=== PATIENT | male | born 1940 | race Caucasian/White ===

== ENCOUNTER → 2019-03-20 14:36 | Day surgery (SDC) | payer MEDICARE ==
--- NOTE | 2019-03-13 16:40 | HP ---
CC: Dr. Terry Callejas * PREOPERATIVE HISTORY AND PHYSICAL: DATE OF ADMISSION/SURGERY: 03/20/19 This patient is scheduled for same-day surgery admission by Dr. Salazar on . DATE OF PREOPERATIVE HISTORY AND PHYSICAL EXAMINATION: 03/13/19. ATTENDING SURGEON: Dr. Raphael Salazar * (dictated by Aliyah Cabrera NP). CHIEF COMPLAINT: Right groin hernia. HISTORY OF PRESENT ILLNESS: The patient is a 78-year-old male recently evaluated by Dr. Salazar with a 1-month history of right groin pain. He noted that in November of 2018 he developed a cough and the cough led to straining and discomfort of the right groin. The patient underwent ultrasound, which was consistent with a fat- containing hernia. Dr. Salazar examined the patient and noted a right inguinal bulge that is nontender. Dr. Salazar reviewed the findings with the patient and given the fact that the patient underwent prostatectomy in the past, Dr. Salazar recommended open right inguinal hernia repair with mesh as a same-day surgery procedure with intravenous sedation and local anesthetic. Dr. Salazar described the rationale for the surgery, the nature of the surgery, the relevant risks and benefits and today, I reviewed the expected postoperative care and recovery. The patient has had a chance to ask questions and stated that he understands the information and is satisfied with the answers given to his questions. He will sign surgical consent on the day of surgery. PAST MEDICAL HISTORY: Prostate cancer. PAST SURGICAL HISTORY: Prostatectomy in 1999 and appendectomy in 1972. MEDICATIONS: Ibuprofen [id number] as needed. ALLERGIES: No known drug allergies. FAMILY HISTORY: No known anesthesia complications, bleeding tendencies, or clotting disorders. SOCIAL HISTORY: He is ; his girlfriend accompanied him to the visit today. He is a nonsmoker and drinks on average 7 alcoholic beverages per week. He remains active with gardening. REVIEW OF SYSTEMS: Constitutional: No fevers, chills, excessive fatigue, or weight loss. General: No previous anesthesia complications. No bleeding tendencies or blood transfusions. No history of deep vein thrombosis or pulmonary embolism. Endocrine: No diabetes or thyroid disease. EENMT: No significant visual difficulties. No problems with hearing. No sore throat or sinus drainage. Respiratory: No dyspnea on exertion. No chronic cough. Cardiovascular: No anginal chest pain or palpitations. Gastrointestinal: No nausea, vomiting, diarrhea, GI bleeding, constipation, or change in bowel habits. Genitourinary: No dysuria. Musculoskeletal: Normal strength and tone. Integumentary: No chronic rashes or skin changes. Neurologic: No headache, blurred vision, or areas of focal weakness or numbness. Psychiatric: No anxiety, depression, or insomnia. PHYSICAL EXAMINATION GENERAL SURVEY: The patient is a 78-year-old male, well developed, well nourished, in no acute distress. VITAL SIGNS: Height 69 inches, weight 155 pounds, body mass index 22.9. Blood pressure 118/66, pulse 78 and regular, respiratory rate 12, temperature 97.8 tympanic. HEENT: Benign. NECK: Supple. No cervical lymphadenopathy. LUNGS: Breath sounds bilaterally clear and equal. HEART: Regular rate and rhythm. No murmurs or rubs appreciated. ABDOMEN: Active bowel sounds. Soft, nondistended, nontender throughout. Inguinal exam done by Dr. Salazar. Right inguinal bulge that is nontender. No overlying skin changes. No evidence of a left inguinal hernia. BACK: No CVA tenderness. GENITALIA: Exam deferred. RECTAL: Exam deferred. EXTREMITIES: Warm without edema or skin ulceration. NEUROLOGIC: Alert and oriented x3. Steady gait. PSYCHIATRIC: Cooperative and calm. SKIN: Warm, dry, intact. IMPRESSION: Symptomatic right inguinal hernia. PLAN: Same-day surgery admission to Dr. Salazar's service on 03/20/19 for open right inguinal hernia repair with mesh. ROSALIO CABRERA, SHAHID [id number]/[facility] #: [id number] YOLA
[~2019-03-20 14:36] MED LIST: Buffered Lidocaine 1% SYRIN* 1 ML/SYRINGE INTRADERM ONE; Bupivacaine 0.5% W/EPI SDV* 10 ML VIAL INJ ONE; Dexamethasone TAB* 4 MG ONE; Dexamethasone TAB* 4 MG PO ONE; Famotidine IV* 10 MG/ML 2 ML (20 mg) IV SLOW PU ONE; Famotidine IV* 10 MG/ML 2 ML (20 mg) ONE; KETAMINE HCL* 50 MG/ML 10 ML VIAL ONE; Ketorolac INJ* 30 MG/ML 1 ML VIAL ONE; Lactated Ringers 1000 ML Bag* 1,000 ML IV SCH; Lidocaine 1% INJ* 10 MG/ML 30 ML SDV ONE; Lidocaine 2% PF * 5 ML VIAL ONE; Midazolam* 1 MG/ML 5 ML VIAL (5 MG) ONE; Ondansetron ODT TAB* 4 MG ONE; Ondansetron TAB* 4 MG PO ONE; Propofol* 500 MG/50 ML BTL ONE; ceFAZolin 2 GM PREMIX in ORs 2 GM/50 ML BAG ONE; fentaNYL* 50 MCG/ML 2 ML VIAL (100 MCG VIAL) ONE
[2019-03-20] MEDS: Buffered Lidocaine 1% SYRIN* 1 ML/SYRINGE INTRADERM ONE ×2 (15:07→15:08)
--- NOTE | 2019-03-20 18:57 | BRIEFOPN ---
Brief Operative/Procedure Note - Operation Details Pre-Op Diagnosis: Right Inguinal Hernia Post-Op Diagnosis: same, indirect Procedures: open repair Right inguinial hernia w/ mesh (Progrip) Surgeon(s)/Proceduralists: Martin. Assist: VIKKI Kennedy; XENIA Delcid Anesthesia: local MAC Estimated Blood Loss: < 20 ml Findings: as above Specimen(s)/Culture(s) Description: hernia sac Complications: none
[2019-03-20 19:59] VITALS: BP 145/71
--- NOTE | 2019-03-22 02:23 | OP ---
CC: Primary Care Doctor; [facility] * DATE OF OPERATION: 03/20/19 - [facility] DATE OF : 40 SURGEON: Raphael Salazar MD LOAN DOCUMENTATION SPECIALIST: VIKKI Hennessy ANESTHESIOLOGIST: Dr. Portillo ANESTHESIA: Local MAC anesthesia. PRE-OP DIAGNOSIS: Right inguinal hernia. POST-OP DIAGNOSIS: Right inguinal hernia. OPERATIVE PROCEDURE: Open right inguinal hernia repair with mesh. ESTIMATED BLOOD LOSS: Minimal. FLUIDS: No crystalloid fluid given. SPECIMEN: Hernia sac. COMPLICATIONS: None. DESCRIPTION OF PROCEDURE: The patient was identified in the preoperative area. He was taken to the operating room and placed on the operating table in the supine position. Preoperative antibiotics were given. Sequential devices were placed on bilateral lower extremities. Gentle sedation was given. The patient' s right groin was clipped off hair and prepped and draped in standard surgical fashion and a time- out was performed. After injection of lidocaine, an inguinal incision was made, this was deepened down through Sherie and Camper's fascia down to the external oblique aponeurosis which was cleared off. We then incised this along the direction of the fibers and made flaps both cephalad and caudad, then the spermatic cord structures were isolated around a Cathryn drain. Review of the structures revealed a large indirect hernia. This was isolated from the spermatic structures. We did enter this and so a sliding omental flat that was adhered to the wall of the sac which was lysed away and dropped back into the abdomen. The hernia sac was then ligated with 2-0 Vicryl suture and dropped back into the abdomen through the internal ring which was cleared off. Next, a ProGrip um rn mesh was then utilized, it was placed in appropriate position, suturing at pubic tubercle and also in the shelving edge of the inguinal ligament. The mesh wrapped around itself recreating the external ring. It lay flat without wrinkling. We did place one suture superiorly as well. Next, the external oblique aponeurosis was reapproximated over the mesh and the wound was irrigated and reapproximated in a standard fashion. The patient tolerated the procedure well was transferred to PACU in stable condition. It should be noted that the ilioinguinal nerve was identified and protected throughout the case and was not ligated. [id number]/[facility] #: [id number] [facility]
== END | disposition home or self-care (01) ==
LOC: OR 14:36
PROVIDERS: ATTEND Surgery
DX: K40.90 Unilateral inguinal hernia, without obstruction or gangrene, not specified as recurrent (principal); Z85.46 Personal history of malignant neoplasm of prostate
CPT/HCPCS: 88302; A9270-GY; C1781; J0690; J1885; J2250; J2704; J3010; J8540

== ENCOUNTER 2024-01-18 15:30 | Observation (INO) ==
[2024-01-18 16:10] LABS: ABS Eosinophils 0.1 10^3/uL (0.0-0.5); ABS Lymphocytes 1.3 10^3/uL (1.0-4.8); ABS Monocytes 0.8 10^3/uL (0.0-1.1); ABS Neutrophils 2.5 10^3/uL (1.5-7.6); Eosinophil % 2.2 %; Hematocrit 36.7 % (38-53); Hemoglobin 13.2 g/dL (13.2-16.3); Lymphocyte % 27.1 %; Mean Corpuscular Hemoglobin 35.9 pg (27-33); Mean Platelet Volume 7.5 fL (7.5-11.2); Nucleated Red Blood Cells % 0.1 %/100WBC (0.0-0.8); Platelet Count 211 10^3/uL (150-450); Red Blood Count 3.67 10^6/uL (4.06-5.63); Red Cell Distribution Width 13.8 % (12-17); White Blood Count 4.7 10^3/uL (3.6-10.2)
[2024-01-18 16:22] LABS: INR 1.13 (0.85-1.14)
[2024-01-18] MEDS: Iodixanol 320 (CONTRAST) 100 ML SDV IV ONE (16:33)
[2024-01-18] MEDS ORDERED: Sulfur Hexaflouride MICROSPHR 25 MG VIAL IV PRN (16:46)
[2024-01-18 17:00] LABS: Albumin 4.3 g/dL (3.2-5.2); Albumin/Globulin Ratio 1.9 (1-3); Calcium 8.7 mg/dL (8.6-10.3); Creatinine, Serum 0.73 mg/dL (0.67-1.17); Globulin 2.3 g/dL (2-4); Potassium 3.6 mmol/L (3.5-5.0); Total Bilirubin 0.8 mg/dL (0.2-1.0); Total Protein 6.6 g/dL (6.4-8.9); eGFR CKD-EPI 90.3 (>60)
[2024-01-18 18:08] LABS: High Sensitivity Troponin 1 Hr 9 pg/mL (<20)
[2024-01-18 18:46] LABS: Albumin 4.2 g/dL (3.2-5.2); Albumin/Globulin Ratio 2.2 (1-3); Calcium 8.7 mg/dL (8.6-10.3); Creatinine, Serum 0.74 mg/dL (0.67-1.17); Direct Bilirubin 0.2 mg/dL (0.03-0.18); Globulin 1.9 g/dL (2-4); HDL Cholesterol 55.8 mg/dL; Indirect Bilirubin 0.7 mg/dL (0.3-1.0); Potassium 3.6 mmol/L (3.5-5.0); Total Bilirubin 0.9 mg/dL (0.2-1.0); Total Protein 6.1 g/dL (6.4-8.9); eGFR CKD-EPI 89.9 (>60)
[2024-01-18] MEDS: Enoxaparin 40 MG/0.4 ML SYR SUBCUT SCH (20:25)
[2024-01-18 21:08] LABS: Urine Appearance Clear; Urine Bilirubin Negative (Negative); Urine Blood Negative (Negative); Urine Color Yellow; Urine Glucose Negative (Negative); Urine Ketones Trace (Negative); Urine Nitrite Negative (Negative); Urine Protein Negative (Negative); Urine Specific Gravity 1.036 (1.002-1.030); Urine Urobilinogen Negative (Negative)
[2024-01-19 06:04] LABS: ABS Basophils 0.1 10^3/uL (0.0-0.1); ABS Eosinophils 0.2 10^3/uL (0.0-0.5); ABS Lymphocytes 1.8 10^3/uL (1.0-4.8); ABS Monocytes 0.9 10^3/uL (0.0-1.1); ABS Neutrophils 2.2 10^3/uL (1.5-7.6); ABS Nucleated RBC 0.01 10^3/ul; Eosinophil % 3.5 %; Hematocrit 36.9 % (38-53); Hemoglobin 13.2 g/dL (13.2-16.3); Lymphocyte % 35.4 %; Mean Corpuscular Hemoglobin 35.2 pg (27-33); Mean Corpuscular Hgb Conc 35.9 g/dL (31-36); Mean Platelet Volume 7.7 fL (7.5-11.2); Nucleated Red Blood Cells % 0.1 %/100WBC (0.0-0.8); Platelet Count 222 10^3/uL (150-450); Red Blood Count 3.77 10^6/uL (4.06-5.63); Red Cell Distribution Width 13.8 % (12-17); White Blood Count 5.1 10^3/uL (3.6-10.2)
[2024-01-19 06:29] LABS: Calcium 8.6 mg/dL (8.6-10.3); Creatinine, Serum 0.69 mg/dL (0.67-1.17); Potassium 3.6 mmol/L (3.5-5.0); eGFR CKD-EPI 91.8 (>60)
[2024-01-19 14:38] VITALS: BP 125/89
[2024-01-19 15:50] LABS: TSH Ultra Thyroid Stim Horm 6.69 mcIU/mL (0.34-5.60)
== END 2024-01-19 17:30 | disposition home or self-care (01) ==
LOC: EDHOLD 15:30 → ED 15:30 → SUATTDRO 18:22 → MEDTELE 22:39
PROVIDERS: ADMIT Internal Medicine; ATTEND Student in an Organized Health Care Education/Training Program